=== PATIENT | male | born 1990 | race Two or more races ===

== ENCOUNTER 2022-12-14 22:53 | Emergency (ER) | payer BC, SELFPAY ==
--- NOTE | ~2022-12-14 | CT_ITS ---
EXAMINATION: CT ANGIOGRAM NECK AND HEAD CLINICAL INFORMATION: Vision changes, headache. COMPARISON: None. TECHNIQUE: Initial noncontrast head CT was performed. Test bolus sequences followed by intravenous administration 70 mL of Omnipaque 350. Helical imaging was performed in the axial plane from the thoracic inlet to the skull vertex. Delayed postcontrast imaging of the head was also performed. The data was processed at the cardiac cath lab radiology technologist's workstation for generation of MIP sequences. Angled MIPs and volume rendered reformatted images were also generated at an offline 3D workstation. Stenoses are assessed in accordance with NASCET criteria unless otherwise indicated. DOSE LOWERING TECHNIQUES: This CT examination was performed using dose optimization techniques as appropriate, variously including the following: - Automated exposure control - Adjustment of mA and/or kV according to patient size (this includes techniques or standardized protocols for targeted exams were dose is matched to indication/reason for exam; i.e. extremities or head) - Use of iterative reconstruction technique DLP: 2359 mGy-cm FINDINGS: Neck CTA: There is a classic 3 vessel branching pattern of the aortic arch. Normal appearance of the visualized aortic arch and proximal branches. No evidence of stenosis at the branch origins. Both vertebral arteries are widely patent throughout their extracranial cervical course, and the left vertebral artery is dominant. Normal appearance of the common and internal carotid arteries without focal stenosis. Brain CTA: Normal appearance of the intradural vertebral arteries. Normal appearance of the basilar and superior cerebellar arteries. Normally opacified posterior cerebral arteries bilaterally. Normal appearance of the intradural internal carotid arteries without focal stenosis. Normal appearance of the anterior cerebral and middle cerebral arteries without focal occlusion or stenosis. Normal anterior communicating artery. Normal arborization of the middle cerebral arteries. CT Head: No intracranial mass, hemorrhage, extra-axial collection, or midline shift. CSF density space in the left middle cranial fossa is favored to reflect an arachnoid cyst. The thao-white matter differentiation is preserved. No pathologic intra-axial enhancement or regional oligemia. No hydrocephalus. The mastoid air cells and paranasal sinuses remain well aerated. CT Neck: The thyroid gland and remaining cervical soft tissues are normal in appearance. No cervical spine abnormalities demonstrated. Upper Chest: No abnormalities in the visualized lung apices or upper mediastinum. CT/CT angio head neck IMPRESSION: 1. No acute intracranial findings. 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 2. No hemodynamically significant stenosis in the major arteries of the neck. No large vessel occlusion or significant stenosis in the intracranial circulation.
[2022-12-14 22:58] VITALS: BP 151/78; BP 168/84; PULSE 70; PULSE 80; RESP 18; TEMP 36.8; O2SAT 97; O2SAT 98; BMI 31.3
--- NOTE | 2022-12-14 22:58 | ED.GENADULT ---
HPI - General Adult General Chief complaint: Dizziness Stated complaint: Dizziness Time Seen by Provider: 12/14/22 22:58 Source: patient History of Present Illness HPI narrative: 32-year-old male who denies significant past medical history presents for evaluation of visual disturbances. Patient states that while he was at work this evening to have difficulty with his vision, including ?seeing black spots?. Patient states part of his vision had been covered with black spots. He was having difficulty focusing. He works in front of multiple computer screens. He denies this happening previously. Patient states it lasted for approximately 10 minutes. It resolved after he closed eyes. He denies any syncope. He does report a dull, right-sided headache. He denies wearing glasses or contacts. No trauma. He has not tried any medication for this. Patient denies any abnormal stressors. He denies any ioie-qae-kdzwtoo medications. No tobacco, or illicit drug her pill use. He does use occasional alcohol but nothing recently. Also of note, patient travel to [place] approximately 1 month ago where he had altitude sickness and was treated Diamox and oxygen therapy. Patient had been feeling well since then. Related Data Allergies Allergy/AdvReac Type Severity Reaction Status Date / Time No Known Allergies Allergy Verified 12/14/22 23:03 Review of Systems Constitutional: Constitutional: Denies body ache(s) and Denies chills Eyes: Eyes: Reports blind spots, Denies blurry vision, Reports change in vision, Denies irritation, Denies loss of peripheral vision, Reports loss of vision, Reports other visual disturbances, Denies requires corrective lenses, Denies seeing flashes, Denies photophobia, Reports spots in vision and Denies tunnel vision ENT: Denies tinnitus Cardiovascular: Cardiovascular: Denies chest pain Respiratory: Respiratory: Denies cough Neurologic: Reports loss of vision PMFSH Social History Social History Alcohol intake: current Alcohol intake frequency: a few times a month Smoked in Last 30 Days: No Use of substances other than those prescribed or required for medical reasons: No Advance Directives: No Advance Directives Information Provided: No Physical Exam ED Vital Signs: Vital Signs - 24 hr 12/14/22 22:58 12/14/22 23:14 12/14/22 23:15 Temperature 98.3 F Pulse Rate 70 70 70 Respiratory Rate 18 Blood Pressure 151/78 H 126/65 142/83 H Pulse Oximetry 97 Oxygen Delivery Method Room Air 12/14/22 23:15 Temperature Pulse Rate 69 Respiratory Rate Blood Pressure 137/85 Pulse Oximetry Oxygen Delivery Method BMI result Body Mass Index 31.3 Const General: alert, awake and Physically active Orientation/consciousness: patient oriented x3 HENMT Other: Pupils are equal round reactive to light. There is no nystagmus. Negative Lali-Hallpike. Auditory canals are pain. Per the TM. Oropharynx is moist. Nares are patent. Eyes Other: Visual thompson and visual acuity are intact. Direct Ophthalmoscopy: No photophobia Resp Auscultation: clear to auscultation bilaterally Cardio Rate: regular rate Rhythm: regular rhythm GI Palpation (GI): nontender Neuro General: patient oriented x3 Cranial nerves: Yes CN's II-XII intact bilaterally Course Reevaluation(s) Reevaluation #1: Reviewed labs and imaging results, no acute process. Reviewed the possible cyst in the middle cranial fossa that the patient will follow-up with his PCP with. In addition, reviewed needed LFTs and reviewed precautions. Has been asymptomatic while in the emergency department. The patient feels comfortable with discharge plan home. No further questions at this time. Time: 01:38 Medications Administered Discontinued Medications Generic Name Dose Route Start Last Admin Trade Name Freq PRN Reason Stop Dose Admin Sodium Chloride 1,000 mls @ 999 mls/hr 12/14/22 23:15 12/15/22 00:49 Ns IV 12/15/22 00:15 Infused .Q1H1M AMY Infusion Iohexol 70 ml 12/15/22 00:37 12/15/22 00:38 Iohexol 350 Mg/Ml 100 Ml Infus..Btl IV 12/15/22 00:38 70 ml ONCE ONE Administration Medical Decision Making Medical Decision Making [facility] Narrative: 32-year-old male who denies significant past medical history presents for evaluation of visual disturbances. Patient symptoms have resolved completely at this time. Check labs, EKG, CT angio of the head and neck. IV fluids. The patient is not orthostatic clinically. Discussed with Dr. Lyn who agrees with plan. Differential Diagnosis Differential Diagnoses: The differential diagnosis associated with the presentation includes Migraine headache CVA Vascular dissection Dehydration Metabolic abnormality Lab Data [facility] Lab Attestation statement: I reviewed the patient's lab results. 12/14/22 23:17 10/27/23 23:17 Labs: Lab Results 12/14/22 Range/Units 23:17 WBC 6.6 (4.8-10.8) X10*3/uL RBC 4.21 L (4.60-5.80) X10*6/uL Hgb 13.0 L (14.0-18.0) g/dl Hct 38.0 L (42.0-52.0) % MCV 90.3 (80.0-98.0) fL MCH 30.9 (27.0-33.0) pg MCHC 34.2 (31.0-36.0) g/dl RDW 11.7 (11.0-16.0) % Plt Count 256 (160-400) X10*3/uL MPV 10.1 (9.4-12.4) fL Immature Gran % (Auto) 0.2 (0.0-0.4) % Neut % (Auto) 40.9 L (45-73) % Lymph % (Auto) 43.8 H (20-40) % [place] % (Auto) 8.1 (2-11) % Eos % (Auto) 6.5 H (0-4) % Baso % (Auto) 0.5 (0-2) % Lymph # (Auto) 2.9 (1.2-4.9) X10*3/uL [place] # (Auto) 0.5 (0.1-1.2) X10*3/uL Eos # (Auto) 0.4 (0.0-0.4) X10*3/uL Baso # (Auto) 0.0 (0.0-0.2) X10*3/uL Abs Immat Gran (auto) 0.01 (0.00-0.03) X10*3/uL Absolute Neuts (auto) 2.7 (2.0-8.3) x10*3/uL Absolute Nucleated RBC 0.000 (0.0-0.012) X10*3/uL Nucleated RBC % (auto) 0.0 (0.0-0.2) /100WBC Sodium 142 (135-145) mmol/L Potassium 3.6 (3.3-5.1) mmol/L Chloride 104 (96-108) mmol/L Carbon Dioxide 27 (22-29) mmol/L Anion Gap 15 (12-20) BUN 13 (9-16) mg/dL Creatinine 0.98 (0.5-1.4) mg/dL Estim Creat Clear Calc 136.6 Estimated GFR > 60 Random Glucose 117 H (60-115) mg/dL Calcium 9.2 (8.4-10.2) mg/dL Magnesium 1.8 (1.6-2.6) mg/dL Total Bilirubin 0.3 (0.0-1.0) mg/dL AST 42 H (5-37) U/L ALT 62 H (0-40) U/L Alkaline Phosphatase 96 (39-117) U/L Total Protein 7.1 (6.5-8.0) g/dL Albumin 4.3 (3.5-5.0) g/dL Independent Interpretation I performed an independent interpretation of an: EKG Interpretation: December 14, 11:18 p.m.. Sinus rhythm at 64 beats per minute without any acute ischemic changes. Radiology Impression Discussion of test interpretation with radiology: I have reviewed the radiologist's reading. Radiologist Impression: [place] [id number] CT Scan Report Signed Patient: Roman Morillo MR#: [id number] : 1990 Acct:[id number] Age/Sex: 32 / M ADM Date: 12/14/22 Loc: .ED Attending Dr: Ordering Physician: Zohaib Abbott Date of Service: 12/15/22 Procedure(s): CT angio head neck Accession Number(s): [id number] cc: James Edwards; Zohaib Abbott~ EXAMINATION: CT ANGIOGRAM NECK AND HEAD CLINICAL INFORMATION: Vision changes, headache. COMPARISON: None. TECHNIQUE: Initial noncontrast head CT was performed. Test bolus sequences followed by intravenous administration 70 mL of Omnipaque 350. Helical imaging was performed in the axial plane from the thoracic inlet to the skull vertex. Delayed postcontrast imaging of the head was also performed. The data was processed at the process safety engineering technologist's workstation for generation of MIP sequences. Angled MIPs and volume rendered reformatted images were also generated at an offline 3D workstation. Stenoses are assessed in accordance with NASCET criteria unless otherwise indicated. DOSE LOWERING TECHNIQUES: This CT examination was performed using dose optimization techniques as appropriate, variously including the following: - Automated exposure control - Adjustment of mA and/or kV according to patient size (this includes techniques or standardized protocols for targeted exams were dose is matched to indication/reason for exam; i.e. extremities or head) - Use of iterative reconstruction technique DLP: 2359 mGy-cm FINDINGS: Neck CTA: There is a classic 3 vessel branching pattern of the aortic arch. Normal appearance of the visualized aortic arch and proximal branches. No evidence of stenosis at the branch origins. Both vertebral arteries are widely patent throughout their extracranial cervical course, and the left vertebral artery is dominant. Normal appearance of the common and internal carotid arteries without focal stenosis. Brain CTA: Normal appearance of the intradural vertebral arteries. Normal appearance of the basilar and superior cerebellar arteries. Normally opacified posterior cerebral arteries bilaterally. Normal appearance of the intradural internal carotid arteries without focal stenosis. Normal appearance of the anterior cerebral and middle cerebral arteries without focal occlusion or stenosis. Normal anterior communicating artery. Normal arborization of the middle cerebral arteries. CT Head: No intracranial mass, hemorrhage, extra-axial collection, or midline shift. CSF density space in the left middle cranial fossa is favored to reflect an arachnoid cyst. The thao-white matter differentiation is preserved. No pathologic intra-axial enhancement or regional oligemia. No hydrocephalus. The mastoid air cells and paranasal sinuses remain well aerated. CT Neck: The thyroid gland and remaining cervical soft tissues are normal in appearance. No cervical spine abnormalities demonstrated. Upper Chest: No abnormalities in the visualized lung apices or upper mediastinum. CT/CT angio head neck IMPRESSION: 1. No acute intracranial findings. 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 2. No hemodynamically significant stenosis in the major arteries of the neck. No large vessel occlusion or significant stenosis in the intracranial circulation. Dictated By: Tyler Avila MD Signed By: <Electronically signed by Tyler Avila MD in OV> 12/15/22 0120 DD/ 0045 TD/TT: Mechanical Maintenance Technician: Discharge Plan Discharge Clinical Impression: Binocular visual disturbance Patient Disposition: Still a Patient Instructions: Blurred Vision (ED) Additional Instructions: Your liver tests were slightly elevated today. This should be rechecked by your primary care provider. Avoid medications that contain Tylenol (acetaminophen). Avoid alcohol use. An incidental finding on your CT scan shows a possible small cyst in the left middle cranial fossa . Follow up with your your primary care provider for any additional evaluation. Follow-up with your primary care provider. Call this week to schedule a follow-up appointment. Return to the emergency department if you have any worsening of symptoms, or any concerns. Get well soon! Stand Alone Forms: Work/School Release
--- NOTE | 2022-12-14 23:11 | ECG_ITS ---
Test Reason : DIZZINESS Blood Pressure : / mmHG Vent. Rate : 064 BPM Atrial Rate : 064 BPM P-R Int : 166 ms QRS Dur : 108 ms QT Int : 384 ms P-R-T Axes : 070 089 054 degrees QTc Int : 396 ms Normal sinus rhythm Normal ECG No previous ECGs available Referred By: Zohaib Abbott Electronically Signed By:BERT SAMSON MD
[2022-12-14 23:14] VITALS: BP 126/65; PULSE 70
[2022-12-14 23:15] VITALS: BP 137/85; BP 142/83; PULSE 69; PULSE 70
[2022-12-14] MEDS: 0.9 % Sodium Chloride 1,000 ML 999 ML IV (23:25)
[2022-12-14 23:29] LABS: MANUAL DIFF FLAG NO
[2022-12-14 23:30] LABS: Basophils Percent Auto 0.5 % (0-2); Eosinophils Absolute Auto 0.4 X10*3/uL (0.0-0.4); Eosinophils Percent Auto 6.5 % (0-4); Imm Gran Abs Auto 0.01 X10*3/uL (0.00-0.03); Imm Gran Pct Auto 0.2 % (0.0-0.4); Lymphocytes Absolute Auto 2.9 X10*3/uL (1.2-4.9); Lymphocytes Percent Auto 43.8 % (20-40); Mean Corpuscular HGB Conc 34.2 g/dl (31.0-36.0); Mean Corpuscular Hemoglobin 30.9 pg (27.0-33.0); Mean Corpuscular Volume 90.3 fL (80.0-98.0); Mean Platelet Volume 10.1 fL (9.4-12.4); Monocytes Absolute Auto 0.5 X10*3/uL (0.1-1.2); Monocytes Percent Auto 8.1 % (2-11); Neutrophils Absolute Auto 2.7 x10*3/uL (2.0-8.3); Neutrophils Percent Auto 40.9 % (45-73); Platelet Count 256 X10*3/uL (160-400); Red Blood Count 4.21 X10*6/uL (4.60-5.80); Red Cell Distribution Width 11.7 % (11.0-16.0); White Blood Count 6.6 X10*3/uL (4.8-10.8)
--- OUTSIDE RECORDS SUMMARY | 2022-12-14 23:41 | XMS_ITS | Continuity of Care Document ---
Author Name Unknown Organization [facility] Adult Address [address] [place] [address]- Care Team Providers Care Patient'S Librarian Name Role Phone James Drew Primary Care Physician En[place] [facility] Date(s): 09/14/19 - 10/14/19 [facility] Adult [address] [place] [address]- [facility] Allergies, Adverse Reactions, Alerts Substance Reaction Severity Status NKA Active Problem List Condition Effective Dates Status Health Status Inform ant Eczema of hand(Confirmed) Active Social History Social History Type Response Smoking Status Never (less than 100 in lifetime) entered on: 10/08/19 Sex
--- OUTSIDE RECORDS SUMMARY | 2022-12-14 23:41 | XMS_ITS | Continuity of Care Document ---
Author Name Unknown Organization [facility] Adult Address Unknown Care Team Providers Care Precision Grinder Name Role Phone James Drew Primary Care Physician ( [phone] Encounter [facility] Date(s): 10/28/20 - 01/27/21 [facility]urvis Adult Attending Physician: James Drew Allergies, Adverse Reactions, Alerts Substance Reaction Severity Status NKA Active Immunizations Given and Recorded Vaccine Date Status Refusal Reason SARS-CoV-2 (COVID-19) mRNA BNT-162b2 vac 06/03/20 Recorded SARS-CoV-2 (COVID-19) mRNA BNT-162b2 vac 05/11/20 Recorded tetanus/diphtheria/pertussis, acel(Tdap) 06/08/16 Recorded Influenza Virus Vaccine (oldterm) 11/08/14 Recorde d Medications Multivitamin Daily, 0 Refills, Maintenance, 01/21/20 9:31:00 EST, Partial fill upon patient request if the prescription is for a schedule II opioid drug. Start Date: 01/21/20 Status: Ordered Problem List Condition Effective Dates Status Health Status Inform ant Eczema of hand(Confirmed) Active Social History Social History Type Response Smoking Status Never (less than 100 in lifetime) entered on: 10/08/19 Sex
--- OUTSIDE RECORDS SUMMARY | 2022-12-14 23:41 | XMS_ITS | Continuity of Care Document ---
Author Name Unknown Organization [facility] Adult Address [address] [place] [address]- Care Team Providers Care Functional Mental Disability Teacher Name Role Phone James Drew Primary Care Physician Encounter [facility] Date(s): 01/21/20 - 02/20/20 [facility] [address] [place] [address]- Attending Physician: Carl Solorio Admitting Physician: Carl Solorio Referring Physician: AdmtrCarl Allergies, Adverse Reactions, Alerts Substance Reaction Severity Status NKA Active Immunizations Given and Recorded Vaccine Date Status Refusal Reason tetanus/diphtheria/pertussis, acel(Tdap) 06/08/16 Recorded Influenza Virus Vaccine [...]
--- OUTSIDE RECORDS SUMMARY | 2022-12-14 23:41 | XMS_ITS | Continuity of Care Document ---
Author Name Unknown Organization [facility] Adult Address [address] [place] [address]- Care Team Providers Care Clay Grinder Name Role Phone James Drew Primary Care Physician Encounter [facility] Date(s): 10/08/19 - 11/07/19 [facility] Adult [address] [place] [address]- [facility] Attending Physician: Carl Solorio Admitting Physician: Carl Solorio Referring Physician: AdmCarl hernandez Allergies, Adverse Reactions, Alerts Substance Reaction Severity Status NKA Active Immunizations Given and Recorded Vaccine Date Status Refusal Reason tetanus/diphtheria/pertussis, acel(Tdap) 06/08/16 Recorded Influenza Virus Vaccine (oldterm) 11/08/14 Recorde d Problem List Condition Effective Dates Status Health Status Inform ant Eczema of hand(Confirmed) Active Social History Social History Type Response Smoking Status Never (less than 100 in lifetime) entered on: 10/08/19 Sex
--- OUTSIDE RECORDS SUMMARY | 2022-12-14 23:41 | XMS_ITS | Continuity of Care Document ---
Author Name Unknown Organization [facility] Adult Address [address] [place] [address]- Care Team Providers Care Engine Cleaner Name Role Phone James Drew Primary Care Physician Encounter [facility] Date(s): 03/24/20 - 03/31/20 [facility] Adult [address] [place] [address]- Encounter Diagnosis Genital warts(Discharge Diagnosis) - 03/24/20 Attending Physician: James Drew Allergies, Adverse Reactions, Alerts Substance Reaction Severity Status NKA Active Immunizations Given and Recorded Vaccine Date Status Refusal Reason tetanus/diphtheria/pertussis, acel(Tdap) 06/08/16 Recorded Influenza Virus Vaccine (oldterm) 11/08/14 Recorde d Medications imiquimod 5% topical cream See Instructions, Topically apply prior to normal sleeping hrs and leave on for 6 to 10 hrs 3 timesa week., # 24 each, 1 Refills, Acute 04/28/20 10:00:00 EST, 03/24/20 7:17:00 EST, [facility]/pharmacy #[id number], Partial fill upon patient request if the prescrip... Start Date: 03/24/20 Stop Date: 04/28/20 Status: Ordered Multivitamin Daily, 0 Refills, Maintenance, 01/21/20 9:31:00 EST, Partial fill upon patient request if the prescription is for a schedule II opioid drug. Start Date: 01/21/20 Status: Ordered Problem List Condition Effective Dates Status Health Status Inform ant Eczema of hand(Confirmed) Active Diagnosis Diagnosis Type Effective Dates Health Status Cl inical Service Informant Genital warts Discharge Diagnosis 03/24/20 Vital Signs Most recent to oldest [Reference Range]: 1 Height 184.0 cm (03/24/20 7:07 AM) Weight 99.8 kg (03/24/20 7:07 AM) Oxygen Saturation [94-100 %] 97 % (03/24/20 7:07 AM) Pulse Rate [55-90 bpm] 69 bpm (03/24/20 7:07 AM) Body Mass Index [18.5-24.99] 29.48 *H* (03/24/20 7:07 AM) Blood Pressure [90-138/55-84 mm Hg] 124/ 74mm Hg (03/24/20 7:07 AM) Temperature [96.8-100.4 DegF] 97.9 DegF (03/24/20 7:07 AM) Mode of Delivery (Oxygen) Room air (03/24/20 7:07 AM) Blood pressure sites Arm, left (03/24/20 7:07 AM) Social History Social History Type Response Smoking Status Never (less than 100 in lifetime) entered on: 10/08/19 Sex
--- OUTSIDE RECORDS SUMMARY | 2022-12-14 23:41 | XMS_ITS | Continuity of Care Document ---
Author Name Unknown Organization [facility] Adult Address [address] [place] [address]- Care Team Providers Care Automatic Operator Name Role Phone James Drew Primary Care Physician Encounter [facility] Date(s): 10/25/22 - 11/01/22 [facility] Adult [address] [place] [address]- Encounter Diagnosis Annual visit for general adult medical examination without abnormal findings (Discharge Diagnosis) - 10/25/22 Ischemic heart disease screen(Discharge Diagnosis) - 10/25/22 Encounter for hepatitis C screening test for low risk patient(Discharge Diagnosis) - 10/25/22 Attending Physician: James Drew Allergies, Adverse Reactions, Alerts No Known Allergies Immunizations Given and Recorded Vaccine Date Status Refusal Reason SARS-CoV-2 mRNA ([id number]) vax 03/03/21 Recorded SARS-CoV-2 (COVID-19) mRNA BNT-162b2 vac 06/03/20 Recorded SARS-CoV-2 (COVID-19) mRNA BNT-162b2 vac 05/11/20 Recorded tetanus/diphtheria/pertussis, acel(Tdap) 06/08/16 Recorded Influenza Virus Vaccine (oldterm) 11/08/14 Recorde d Medications Multivitamin Daily, 0 Refills, Maintenance, 01/21/20 9:31:00 EST, Partial fill upon patient request if the prescription is for a schedule II opioid drug. Start Date: 01/21/20 Status: Ordered Problem List Condition Confirmation Course Effective Dates Status Health St atus Informant Eczema of hand Confirmed Active Diagnosis Diagnosis Type Effective Dates Health Status Clinical Service Informant Annual visit for general adult medical examination without abnormal findings Discharge Diagnosis 10/25/22 Ischemic heart disease screen Discharge Diagnosis 10/25/22 Encounter for hepatitis C screening test for low risk patient Discharge Diagnosis 10/25/22 Procedures Procedure Date Related Diagnosis Body Site Status Incision and drainage of pilonidal cyst 1 Completed [id number] Vital Signs Most recent to oldest [Reference Range]: 1 Height 183.00 cm (10/25/22 3:59 PM) Weight 96.4 kg (10/25/22 3:59 PM) Oxygen Saturation [94-100 %] 96 % (10/25/22 3:59 PM) Pulse Rate [55-90 bpm] 66 bpm (10/25/22 3:59 PM) Body Mass Index [18.5-24.99 kg/m2] 28.79 kg/m2 *H* (10/25/22 3:59 PM) Blood Pressure [90-138/55-84 mm Hg] 126/ 75mm Hg (10/25/22 3:59 PM) Mode of Delivery (Oxygen) Room air (10/25/22 3:59 PM) Blood pressure sites Arm, left (10/25/22 3:59 PM) Social History Social History Type Response Smoking Status Never (less than 100 in lifetime) entered on: 10/25/22 Sex Note * Glenys Tan [place]: PERFORM, SIGN, VERIFY Event Display: Patient Education/Instruction Authored Date: [id number] [facility] *DONTA Hooks Clinical Summary Name EMELY BOBO Age 32 Years 1990 PCP Jerry LU, James Britton PCP Visit Date 10/25/2022 15:54:00 Additional Instructions: Scheduled Appointments?? Future Appointments ?No Future Appointments Scheduled Follow-Up Instructions ?? Diagnosis Encounter for general adult medical examination without abnormal findings; Encounter for screening for cardiovascular disorders; Encounter for screening for other viral diseases Medications: Please continue your medications until treatment is completed or stopped by your provider. Discuss any questions related to medications with your provider. Medications to Continue with No Changes These medications were not printed or sent to your pharmacy Multivitamin Daily. Next Dose: Allergy Info:?? NKA Medications Given This Visit Future Orders ?Lipid Panel? Order Date:10/25/22?- Complete on or after?10/25/22 ?Basic Metabolic Panel? Order Date:10/25/22?- Complete on or after?10/25/22 ?Hepatitis C Ab? Order Date:10/25/22?- Complete on or after?10/25/22 Vital Signs Height 183.00 cm Weight 96.4 kg BMI 28.79 kg/m2 Blood Pressure 126 mm Hg/75 mm Hg Temperature Pulse Rate 66 bpm Respiratory Rate 02 Sat Mode of Delivery 96 %/Room air You can now view a summary of your hospital visit from the comfort of your home through a free online portal called [employer]. [employer] is a website that allows you to securely view your medical information including discharge summary, medications and follow-up visits. ??You can alsosend a secure electronic message to your doctor???s office to request appointments, renew medications or just ask a question. You can enroll at [email or web address] or register during your next office visit. Disclaimer:?? The information provided is of a general nature and is intended to be used in conjunction with the recommendations and advice of your health care practitioner. ??Every effort has been made to ensure that the information provided is accurate and complete at the time it is provided to you however, as your needs change, or, as new ??information becomes available, different or additional instructions may be required. If you have questions, please consult with your primary care provider or pharmacist, as appropriate. ??This information is not intended to serve as substitution for assessment and evaluation by a qualified health care provider. If you do not have a primary care provider, you may find a [facility] provider by calling [facility] Link at [phone]. [facility], in keeping with [facility] guidance, no longer requires face masks for staff, patientsor visitors in most situations. Similar to time spent indoors at other locations, there is the chance that you were exposed to respiratory viruses during your time with us (such as flu or COVID-19).? If you develop symptoms concerning for a viral respiratory infection, please seek testing (and treatment if indicated) from your medical provider or home test kit. For information about the plan of care including goals and instructions for your diagnosis, please see the patient education orders section of this document. Patient Education Materials?? The content of this educational material or handout may have been modified, supplemented, or adapted from its original content and format to support your individualized medical care. Patient Care team information Care Team Personnel Name: James Drew Position: S PCO Associate Professional Member Role: PCP Address: Address: [address] [place] [address]- Care Team Related Persons Name: ANALI BOBO Address: [address] [address]
--- OUTSIDE RECORDS SUMMARY | 2022-12-14 23:41 | XMS_ITS | Continuity of Care Document ---
Author Name Unknown Organization [facility] Adult Address [address] [place] [address]- Care Team Providers Care Tool Maker Apprentice Name Role Phone James Drew Primary Care Physician ( [phone] Encounter [facility] Date(s): 03/31/20 - 04/30/20 [facility] Adult [address] [place] [address]- Attending Physician: Carl Solorio Admitting Physician: Carl [...]
--- OUTSIDE RECORDS SUMMARY | 2022-12-14 23:41 | XMS_ITS | Continuity of Care Document ---
Author Name Unknown Organization [facility] Adult Address [address] [place] [address]- Care Team Providers Care Spring Coiling Machine Setter Name Role Phone James Drew Primary Care Physician Encounter [facility] [place] Date(s): 03/15/20 - 04/14/20 [facility] Adult [address] [place] [address]- Allergies, Adverse Reactions, Alerts Substance Reaction Severity [...] Acute 04/28/20 10:00:00 EST, 03/24/20 7:17:00 EST, [id number], Partial fill upon patient request if [...]
--- OUTSIDE RECORDS SUMMARY | 2022-12-14 23:41 | XMS_ITS | Continuity of Care Document ---
Author Name Unknown Organization [facility] Adult Address [address] [place] [address]- Care Team Providers Care Handle Bender Name Role Phone James Drew Primary Care Physician Encounter [facility] [place] Date(s): 07/08/19 - 07/15/19 [facility] Adult [address] [place] [address]- [facility] Encounter Diagnosis Eczema of hand(Discharge Diagnosis) - 07/08/19 Chest congestion(Discharge Diagnosis) - 07/08/19 SOB (shortness of breath)(Discharge Diagnosis) - 07/08/19 Body aches(Discharge Diagnosis) - 07/08/19 Chills(Discharge Diagnosis) - 07/08/19 Attending Physician: James Drew Allergies, Adverse Reactions, Alerts Substance Reaction Severity Status NKA Active Medications triamcinolone 0.1% topical ointment 1 application, Topically, 2 times a day, for 14 days, # 60 Gm, 2 Refills, Acute 08/19/19 13:05:00 EDT, 07/08/19 13:05:00 EDT, Ointment, [id number], 1 application Topically 2 times a day,x14 days, 91.4, kg, 08/10/17 17:30:00 EDT, Dry Weight Start Date: 07/08/19 Stop Date: 08/19/19 Status: Ordered Problem List Condition Effective Dates Status Health Status Inform ant Eczema of hand(Confirmed) Active Diagnosis Diagnosis Type Effective Dates Health Status Clinical Service Informant Eczema of hand Discharge Diagnosis 07/08/19 Chest congestion Discharge Diagnosis 07/08/19 SOB (shortness of breath) Discharge Diagnosis 07/08/19 Body aches Discharge Diagnosis 07/08/19 Chills Discharge Diagnosis 07/08/19 Procedures Procedure Date Related Diagnosis Body Site Status Tonsillectomy 2018 Completed Social History Social History Type Response Smoking Status Never (less than 100 in lifetime) entered on: 07/08/19 Sex
--- OUTSIDE RECORDS SUMMARY | 2022-12-14 23:41 | XMS_ITS | Continuity of Care Document ---
Author Name Unknown Organization [facility] Adult Address [address] [place] [address]- Care Team Providers Care Kier Operator Name Role Phone James Drew Primary Care Physician Encounter [facility] [place] Date(s): 10/08/19 - 10/15/19 [facility] [address] [place] [address]- [facility] Encounter Diagnosis Annual visit for general adult medical examination without abnormal findings (Discharge Diagnosis) - 10/08/19 Ischemic heart disease screen(Discharge Diagnosis) - 10/08/19 Screening for HIV (human immunodeficiency virus)(Discharge Diagnosis) - 10/08/19 Attending Physician: James Drew Allergies, Adverse Reactions, [...] medical examination without abnormal findings Discharge Diagnosis 10/08/19 Ischemic heart disease screen Discharge Diagnosis 10/08/19 Screening for HIV (human immunodeficiency virus) Discharge Diagnosis 10/08/19 Vital Signs Most recent to oldest [Reference Range]: 1 Height 184.0 cm (10/08/19 1:51 PM) Weight 94.1 kg (10/08/19 1:51 PM) Oxygen Saturation [94-100 %] 98 % (10/08/19 1:51 PM) Pulse Rate [55-90 bpm] 63 bpm (10/08/19 1:51 PM) Body Mass Index [18.5-24.99] 27.79 *H* (10/08/19 1:51 PM) Blood Pressure [90-138/55-84 mm Hg] 126/ 80mm Hg (10/08/19 1:51 PM) Mode of Delivery (Oxygen) Room air (10/08/19 1:51 PM) Blood pressure sites Arm, left (10/08/19 1:51 PM) Social History Social History Type Response Smoking Status Never (less than 100 in lifetime) entered on: 10/08/19 Sex
--- OUTSIDE RECORDS SUMMARY | 2022-12-14 23:41 | XMS_ITS | Continuity of Care Document ---
Author Name Unknown Organization [facility] Adult Address [address] [place] [address]- Care Team Providers Care Machine Milker Name Role Phone Shannon Rae MD Primary Care Physician [phone] Encounter [facility] [place] Date(s): 03/19/19 - 03/29/19 [facility] Adult [address] [place] [address]- [facility] Attending Physician: Carl Solorio Admitting Physician: Carl Solorio Referring Physician: AdmtrCarl Allergies, Adverse Reactions, Alerts Substance Reaction Severity Status NKA Active
--- OUTSIDE RECORDS SUMMARY | 2022-12-14 23:41 | XMS_ITS | Continuity of Care Document ---
Author Name Unknown Organization [facility] Adult Address [address] [place] [address]- Care Team Providers Care Gravity Flow Irrigator Name Role Phone James Drew Primary Care Physician Encounter [facility] Date(s): 10/20/19 - 11/19/19 [facility] Adult [address] [place] [address]- [facility] Allergies, Adverse Reactions, Alerts Substance Reaction Severity [...]
--- OUTSIDE RECORDS SUMMARY | 2022-12-14 23:41 | XMS_ITS | Continuity of Care Document ---
Author Name Unknown Organization [facility] Adult Address [address] [place] [address]- Care Team Providers Care Refrigeration Lead Name Role Phone James Drew Primary Care Physician Encounter [facility] [place] Date(s): 03/31/20 - 04/07/20 [facility] Adult [address] [place] [address]- Encounter Diagnosis Coccydynia(Discharge Diagnosis) - 03/31/20 Attending Physician: James Drew Allergies, Adverse Reactions, [...] Acute 04/28/20 10:00:00 EST, 03/24/20 7:17:00 EST, [id number], Partial fill upon patient request if [...] Diagnosis Diagnosis Type Effective Dates Health Status Clini kyle Service Informant Coccydynia Discharge Diagnosis 03/31/20 Social History Social History Type Response Smoking Status Never (less than 100 in lifetime) entered on: 10/08/19 Sex
--- OUTSIDE RECORDS SUMMARY | 2022-12-14 23:41 | XMS_ITS | Continuity of Care Document ---
Author Name Unknown Organization [facility] Adult Address [address] [place] [address]- Care Team Providers Care Nurse Practitioner Physician Assistant Name Role Phone Shannon Rae MD Primary Care Physician Encounter [facility] [place] Date(s): 02/02/19 - 04/18/19 [facility] [address] [place] [address]- [facility] Attending Physician: Parvez Weiss MD Allergies, Adverse Reactions, Alerts Substance Reaction Severity Status NKA Active
--- OUTSIDE RECORDS SUMMARY | 2022-12-14 23:41 | XMS_ITS | Continuity of Care Document ---
Author Name Unknown Organization [facility] Adult Address [address] [place] [address]- Care Team Providers Care Medical Secretary Teacher Name Role Phone James Drew Primary Care Physician [place] [facility] [place] 01/21/20 - 01/28/20 [facility] [address] [place] [address]- Encounter Diagnosis Unprotected sexual intercourse(Discharge Diagnosis) - 01/21/20 Penile lump(Discharge Diagnosis) - 01/21/20 Attending Physician: James Drew Allergies, Adverse Reactions, [...] Effective Dates Health Status Clinical Service Informant Unprotected sexual intercourse Discharge Diagnosis 01/21/20 Penile lump Discharge Diagnosis 01/21/20 Vital Signs Most recent to oldest [Reference Range]: 1 Height 184.0 cm (01/21/20 9:30 AM) Social History Social History Type Response Smoking Status Never (less than 100 in lifetime) entered on: 10/08/19 Sex
--- OUTSIDE RECORDS SUMMARY | 2022-12-14 23:41 | XMS_ITS | Continuity of Care Document ---
Author Name Unknown Organization [facility] Adult Address Unknown Care Team Providers Care Drug Room Operator Name Role Phone James Drew Primary Care Physician Encounter [facility] [place] Date(s): 12/28/20 - 01/27/21 [facility] [place] [facility] Attending Physician: Admtr, Ar8 Admitting Physician: Admtr, Ar8 Referring Physician: Admtr, Ar8 Allergies, Adverse Reactions, Alerts Substance Reaction Severity [...]
[2022-12-14 23:45] LABS: Alanine Aminotransferase 62 U/L (0-40); Albumin Level 4.3 g/dL (3.5-5.0); Alkaline Phosphatase 96 U/L (39-117); Anion Gap 15 (12-20); Aspartate Amino Transferase 42 U/L (5-37); Bilirubin Total 0.3 mg/dL (0.0-1.0); Blood Urea Nitrogen 13 mg/dL (9-16); Calcium 9.2 mg/dL (8.4-10.2); Carbon Dioxide 27 mmol/L (22-29); Chloride 104 mmol/L (96-108); Creatinine Clr Calc Pharmacy 136.6; Estimated Glomerular Filt Rate > 60; Glucose Random 117 mg/dL (60-115); Magnesium 1.8 mg/dL (1.6-2.6); Potassium 3.6 mmol/L (3.3-5.1); Sodium 142 mmol/L (135-145); Total Protein 7.1 g/dL (6.5-8.0)
[2022-12-15] MEDS: iohexoL 350 MG/ML 100 ML INFUS..BTL 70 ML IV (00:38)
--- NOTE | 2022-12-15 01:06 | PC.NURSE ---
this rn assumed care of pt. pt artemio from work where he reports an episode of dizziness with head spinning, and blurriness with black spots in eyes after making a bowel movement. pt reports having normal bowel movement for baseline,
--- NOTE | 2022-12-15 01:08 | PC.NURSE ---
pt biba from work, pt reports having episode of dizziness with spinning and blurriness and black spots in eyes after bowel movement, pt reports normal bowel movement for baseline. pt reports 10 minutes after episode all symptoms subsided. pt denies falling and reports sitting down after episode. pt denies SOB,chest pain, N/V/D. pt neuro assessment in tact, pt normal sinus on tele 78-80.
[2022-12-15 01:39] VITALS: BP 123/66; PULSE 72; RESP 16; TEMP 36.7
== END 2022-12-15 02:02 | disposition still patient (30) ==
PROVIDERS: Physician Assistant; Emergency Provider Emergency Medicine; PCP Physician Assistant Medical
DX: H53.30 Unspecified disorder of binocular vision (principal); R42 Dizziness and giddiness
CPT/HCPCS: 36415; 70496; 70498; 80053; 83735; 85025; 93005; 96360; 99284; 99285; Q9967